=== PATIENT | female | born 1975 | race Caucasian/White ===

== ENCOUNTER 2018-06-16 10:00 | Emergency (ER) | payer OTHER ==
[~2018-06-16] VITALS: Ht 167.6 cm; Wt 65.8 kg
[2018-06-16] MEDS ORDERED: NASONEX17 GM TOP (10:54)
[2018-06-16] MEDS ORDERED: ZITHROMAX200 MG PO (10:54)
[2018-06-16] MEDS ORDERED: CLARITIN-D 241 EACH PO (10:54)
== END 2018-06-16 12:36 | disposition home or self-care (01) ==
LOC: ER 10:00
DX: J32.8 Other chronic sinusitis (principal)